=== PATIENT | male | born 1950 | race Caucasian/White ===

== ENCOUNTER 2021-07-12 15:42 | Emergency (ER) | payer MEDICARE ==
[~2021-07-12] VITALS: Ht 175 cm; Wt 70.0 kg
[2021-07-12] MEDS ORDERED: ATOR80TA76 (15:59)
--- NOTE | 2021-07-12 16:24 | ED Cardiac General ---
History of Present Illness General Chief Complaint: Cardiac/General Problems Stated Complaint: SOB, DIZZINESS, HEADACHE Nursing Triage Note: ARRIVED VIA AMB TO ROOM 05. STATES WHILE HE WAS RUNNING TODAY AT 1345 HE BECAME DIZZY, SOA, AND RACING HEART WHICH IS ABNORMAL FOR HIM. STATES HE FEELS FINE NOW. Source: patient Exam Limitations: no limitations (NIEVES MEI APRN) History of Present Illness Date Seen by Provider: Jul 12, 2021 Time Seen by Provider: 15:55 Initial Comments To ER by private vehicle accompanied by his with reports of palpitations shortness of breath dizziness. This began earlier this afternoon. He has a lot of caffeine this morning and was feeling some fluttering in his chest so he went to the [employer] to go for a jog and noticed that he felt increasing palpitations and fast heart rate so decided to come to the emergency room. He has had a couple of episodes in the past of lightheadedness but has never felt quite like this before. He has a history of hyperlipidemia and follows with Dr. PATEL. His only medication is atorvastatin. Timing/Duration: 4-6 hours, changing over time Severity: moderate Activities at Onset: none NTG SL CONTROL PANEL ASSEMBLER: No ASA po CONTROL PANEL ASSEMBLER: Yes Associated Systoms: No Chest Pain; Shortness of Air (NIEVES MEI APRN) Allergies and Home Medications Allergies Coded Allergies: No Known Drug Allergies (Unverified , 09/30/12) Patient Home Medication List Home Medication List Reviewed: Yes (NIEVES MEI APRN) Atorvastatin Calcium (Atorvastatin Calcium) 80 Mg Tablet, (Reported) Entered as Reported by: RUTH SALTER on 07/12/21 9929 Last Action: New Order Diltiazem HCl (Diltiazem 24Hr Cd) 120 Mg Cap.er.24h, 120 MG PO DAILY Prescribed by: NIEVES MEI on 07/12/21 7041 Review of Systems Review of Systems Constitutional: see HPI EENTM: No Symptoms Reported Respiratory: See HPI, Shortness of Air, SOA With Exertion Cardiovascular: See HPI, Irregular Heart Rate, Lightheadedness, Palpitations Gastrointestinal: No Symptoms Reported Genitourinary: No Symptoms Reported Musculoskeletal: no symptoms reported Skin: no symptoms reported Psychiatric/Neurological: No Symptoms Reported Endocrine: No Symptoms Reported Hematologic/Lymphatic: No Symptoms Reported (NIEVES MEI APRN) Physical Exam Vital Signs Vital Signs - First Documented 07/12/21 15:45 Temp 36.3 Pulse 106 Resp 16 B/P (MAP) 148/65 (92) Pulse Ox 98 O2 Delivery Room Air (RADHA CELESTE DO) Vital Signs Capillary Refill : Less Than 3 Seconds (NIEVES MEI APRN) Height, Weight, BMI Height: '" Weight: lbs. oz. kg; 22.00 BMI Method: General Appearance: No Apparent Distress, WD/WN, Thin, Other (Alert and oriented very pleasant is at the bedside. He is noted to be atrial fibrillation with rapid ventricular response and a rate of 126 07/31/1966. Blood pressure is 104/54. Respiratory rate is 16.) HEENT: PERRL/EOMI, TMs Normal Neck: Full Range of Motion, Normal Inspection Respiratory: No Accessory Muscle Use, No Respiratory Distress Cardiovascular: Irregularly Irregular, Tachycardia Gastrointestinal: Normal Bowel Sounds, Non Tender, Soft Extremity: Normal Capillary Refill, Normal Inspection Neurologic/Psychiatric: Alert, Oriented x3 Skin: Normal Color, Warm/Dry (NIEVES MEI APRN) Progress/Results/Core Measures Results/Orders Lab Results Laboratory Tests Test 07/12/21 16:05 07/12/21 18:00 Range/Units White Blood Count 5.2 4.3-11.0 10^3/uL Red Blood Count 4.05 L 4.30-5.52 10^6/uL Hemoglobin 12.5 L 13.3-17.7 g/dL Hematocrit 37 L 40-54 % Mean Corpuscular Volume 92 80-99 fL Mean Corpuscular Hemoglobin 31 25-34 pg Mean Corpuscular Hemoglobin Concent 34 32-36 g/dL Red Cell Distribution Width 13.3 10.0-14.5 % Platelet Count 190 130-400 10^3/uL Mean Platelet Volume 10.4 9.0-12.2 fL Immature Granulocyte % (Auto) 0 % Neutrophils (%) (Auto) 65 42-75 % Lymphocytes (%) (Auto) 27 12-44 % Monocytes (%) (Auto) 6 0-12 % Eosinophils (%) (Auto) 1 0-10 % Basophils (%) (Auto) 1 0-10 % Neutrophils # (Auto) 3.4 1.8-7.8 10^3/uL Lymphocytes # (Auto) 1.4 1.0-4.0 10^3/uL Monocytes # (Auto) 0.3 0.0-1.0 10^3/uL Eosinophils # (Auto) 0.1 0.0-0.3 10^3/uL Basophils # (Auto) 0.1 0.0-0.1 10^3/uL Immature Granulocyte # (Auto) 0.0 0.0-0.1 10^3/uL Prothrombin Time 15.0 H 12.2-14.7 SEC INR Comment 1.1 0.8-1.4 Activated Partial Thromboplast Time 36 H 24-35 SEC Sodium Level 141 135-145 MMOL/L Potassium Level 3.8 3.6-5.0 MMOL/L Chloride Level 106 98-107 MMOL/L Carbon Dioxide Level 22 21-32 MMOL/L Anion Gap 13 5-14 MMOL/L Blood Urea Nitrogen 23 H 7-18 MG/DL Creatinine 1.15 0.60-1.30 MG/DL Estimat Glomerular Filtration Rate 67 BUN/Creatinine Ratio 20 Glucose Level 141 H 70-105 MG/DL Calcium Level 9.1 8.5-10.1 MG/DL Corrected Calcium 9.1 8.5-10.1 MG/DL Magnesium Level 1.9 1.6-2.4 MG/DL Total Bilirubin 1.1 H 0.1-1.0 MG/DL Aspartate Amino Transf (AST/SGOT) 48 H 5-34 U/L Alanine Aminotransferase (ALT/SGPT) 46 0-55 U/L Alkaline Phosphatase 48 40-136 U/L Myoglobin 199.3 H 10.0-92.0 NG/ML Troponin I < 0.028 0.095 H <0.028 NG/ML B-Type Natriuretic Peptide 74.6 <100.0 PG/ML Total Protein 6.4 6.4-8.2 GM/DL Albumin 4.0 3.2-4.5 GM/DL Thyroid Stimulating Hormone (TSH) 2.89 0.35-4.94 UIU/ML Free Thyroxine 0.93 0.70-1.48 NG/DL (JEN CELESTEA K DO) Vital Signs/I&O 07/12/21 07/12/21 15:45 18:57 Temp 36.3 Pulse 106 60 Resp 16 16 B/P (MAP) 148/65 (92) 122/74 Pulse Ox 98 98 O2 Delivery Room Air Room Air (ROULA,RADHA K DO) Blood Pressure Mean: 92 Departure Communication (Admissions) His initial EKG showed atrial fibrillation with a rapid ventricular response. Rate of 132. His repeat EKG at this time shows sinus rhythm at 70 with no ectopy normal intervals. 1747-normal sinus rhythm at 57 without ectopy. Blood pressure is 135/85. I discussed with Dr. Miller, plan to go home after a repeat troponin as long as it is still negative. He denies chest pain now or at any time, only the palpitations and shortness of breath. He has a [id number] score of 1 because of his age but no other risk factors as he is really quite healthy. He was out digging a duck blind hand today according to the and drinks a lot of coffee. I discussed with him the risk of stroke based on the [id number] score and the recommendation to use either an antiplatelet or anticoagulant. Dr. Brito's preference is Eliquis. Patient states that he is not at all interested in using an anticoagulant but he would agree to restarting aspirin. He also agrees to starting Cardizem per Dr. Brito's recommendation. Since his heart rate is only 57 I will just do 120 mg. Also I will have him reduce his caffeine intake. He agrees to follow-up with cardiology next week, calling tomorrow to make an appointment. 184-repeat troponin is elevated at 0.095. I recommended admission, he refuses to stay and will sign out AGAINST MEDICAL ADVICE. (NIEVES MEI APRN) Impression Primary Impression: Paroxysmal atrial fibrillation with RVR Disposition: ADMITTED INPATIENT Condition: Stable Admissions Decision to Admit Reason: Admit from ER (General) Decision to Admit/Date: Jul 12, 2021 Time/Decision to Admit Time: 16:25 (NIEVES MEI APRN) Departure-Patient Inst. Decision time for Depature: 17:51 (NIEVES MEI APRN) Referrals: SEBASTIAN HAHN MD (PCP) Primary Care Physician ESTEFANIA BRITO MD FACP FAC CCDS MARQUES NULL MD, DAVID L JR, MD Patient Instructions: Atrial Fibrillation and Atrial Flutter ED Add. Discharge Instructions: 1. Restart your aspirin regimen, 2 baby aspirin a day would be fine. Take the medicine called diltiazem (Cardizem) 2 try to keep you out of this rhythm. Return to ER for any concerns. Call the new car make ready worker of your choosing tomorrow to make an appointment to be seen sometime next week. All discharge instructions reviewed with patient and/or family. Voiced understanding. Scripts Diltiazem HCl (Diltiazem 24Hr Cd) 120 Mg Cap.er.24h 120 MG PO DAILY, #30 CAP Prov: NIEVES MEI APRN 07/12/21 ATTENDING PHYSICIAN NOTE: I WAS PHYSICALLY PRESENT ER PHYSICIAN WHEN THIS PATIENT WAS IN ER, I WAS NOT INVOLVED IN ANY DECISION MAKING OR ANY CARE OF THIS PATIENT (RADHA CELESTE DO) Copy Copies To 1: ENA PATEL MD, PETER J APRN Jul 12, 2021 16:24 RADHA CELESTE DO Jul 14, 2021 02:36
[2021-07-12 16:27] LABS: BASOPHILS # (AUTO) 0.1 10^3/uL (0.0-0.1); BASOPHILS % (AUTO) 1 % (0-10); EOSINOPHILS # (AUTO) 0.1 10^3/uL (0.0-0.3); EOSINOPHILS % (AUTO) 1 % (0-10); HEMATOCRIT 37 % (40-54); HEMOGLOBIN 12.5 g/dL (13.3-17.7); LYMPHOCYTES # (AUTO) 1.4 10^3/uL (1.0-4.0); LYMPHOCYTES % (AUTO) 27 % (12-44); MEAN CORPUSCULAR HEMOGLOBIN 31 pg (25-34); MEAN CORPUSCULAR HGB CONC 34 g/dL (32-36); MEAN CORPUSCULAR VOLUME 92 fL (80-99); MEAN PLATELET VOLUME 10.4 fL (9.0-12.2); MONOCYTES # (AUTO) 0.3 10^3/uL (0.0-1.0); MONOCYTES % (AUTO) 6 % (0-12); NEUTROPHILS # (AUTO) 3.4 10^3/uL (1.8-7.8); NEUTROPHILS % (AUTO) 65 % (42-75); PLATELET COUNT 190 10^3/uL (130-400); WHITE BLOOD COUNT 5.2 10^3/uL (4.3-11.0)
[2021-07-12 16:30] LABS: POTASSIUM 3.8 MMOL/L (3.6-5.0)
[2021-07-12] MEDS ORDERED: NS IV 1000 ML 1,000 ML IV SCH (16:30)
[2021-07-12] MEDS ORDERED: LACTATED RINGERS 1,000 ML IV SCH (16:30)
[2021-07-12] MEDS ORDERED: dilTIAZem DRIP PRE-MIX 125 ML IV SCH (16:30)
[2021-07-12] MEDS ORDERED: ASPIRIN 81 MG CHEW (CHILDREN'S ASA) PO ONE (16:30)
[2021-07-12 16:32] LABS: CALCIUM 9.1 MG/DL (8.5-10.1)
[2021-07-12 16:33] LABS: TOTAL PROTEIN 6.4 GM/DL (6.4-8.2)
[2021-07-12 16:34] LABS: BILIRUBIN,TOTAL 1.1 MG/DL (0.1-1.0)
[2021-07-12 16:36] LABS: CREATININE SERUM 1.15 MG/DL (0.60-1.30)
[2021-07-12 16:40] LABS: MAGNESIUM 1.9 MG/DL (1.6-2.4)
[2021-07-12 16:44] LABS: INR 1.1 (0.8-1.4)
--- NOTE | 2021-07-12 16:49 | Diagnostic Imaging Report ---
INDICATION: Chest pain, shortness of breath. COMPARISONS: None. FINDINGS: Single view of the chest shows senescent changes with some chronic parenchymal changes. There are slight prominent central lung markings with some peribronchial cuffing suggesting element of mild bronchitis. No consolidations are seen. There is no effusion or pneumothorax. Soft tissues and bony thorax are unremarkable. IMPRESSION: Questionable mild bronchitis, otherwise no acute consolidations seen. Dictated by: Dictated on workstation # [id number]
[2021-07-12 17:03] LABS: FREE T4 (FREE THYROXINE) 0.93 NG/DL (0.70-1.48)
[2021-07-12] MEDS ORDERED: DILT120C88 PO (17:53)
[2021-07-12] MEDS ORDERED: ENOXAPARIN 80 MG/0.8 ML (LOVENOX) SYR SC ONE (18:45)
[2021-07-12 18:57] VITALS: BP 122/74
== END 2021-07-12 18:57 | disposition other institution (70) ==
LOC: EDUNIT# 15:42 → ER 15:45
DX: I48.20 Chronic atrial fibrillation, unspecified (principal); R00.0 Tachycardia, unspecified; E78.00 Pure hypercholesterolemia, unspecified; Z79.899 Other long term (current) drug therapy
CPT/HCPCS: 36415; 71045; 80053; 83735; 83874; 83880; 84439; 84443; 84484; 85025; 85610; 85730; 93005; 93041

== ENCOUNTER 2021-08-27 08:45 | Outpatient (CLI) | payer MEDICARE ==
[~2021-08-27 08:45] MED LIST: ATOR80TA76; DILT120C88 PO
== END 2021-08-27 09:00 ==
LOC: SLEEP 08:45
DX: G47.10 Hypersomnia, unspecified (principal); I48.0 Paroxysmal atrial fibrillation; I49.9 Cardiac arrhythmia, unspecified; I10 Essential (primary) hypertension
CPT/HCPCS: G0399

== ENCOUNTER → 2022-03-29 | Outpatient (CLI) | payer MEDICARE ==
[~2022-03-29] VITALS: Ht 177.8 cm; Wt 72.6 kg
[~2022-03-29] MED LIST changes: +APIX5TAB PO; +LISI20TA26 PO; +ROSU40TA23 PO
== END | disposition home or self-care (01) ==
LOC: PREOP 08:18
PROVIDERS: ATTEND Surgery
DX: Z01.818 Encounter for other preprocedural examination (principal)

== ENCOUNTER 2022-04-03 11:26 | Day surgery (SDC) | payer MEDICARE ==
[2022-04-03] VITALS (8 sets, daily range): BP systolic 81–134; BP diastolic 42–63
[~2022-04-03] VITALS: Ht 177 cm; Wt 72.6 kg
[~2022-04-03 11:26] MED LIST changes: +LACTATED RINGERS 1,000 ML IV STA
[2022-04-03] MEDS ORDERED: LIDOCAINE JELLY 2% 6 ML SYRINGE MM PRN (11:30)
[2022-04-03] MEDS ORDERED: LACTATED RINGERS 1,000 ML IV ONE (11:40)
--- NOTE | 2022-04-03 11:59 | Progress Note-Pre Operative ---
Pre-Operative Progress Note Date of Available H&P: Apr 03, 2022 Date H&P Reviewed: Apr 03, 2022 Time H&P Reviewed: 11:00 History & Physical: No changes noted Pre-Operative Diagnosis: screening o ALTHEA FRANKLIN MD Apr 03, 2022 11:59
[2022-04-03] MEDS ORDERED: ONDANSETRON 4 MG/2 ML (SDV) Z0FRAN IVP PRN (12:00)
[2022-04-03] MEDS ORDERED: ONDANSETRON 4 MG (ZOFRAN) ORAL DISSOLVE TAB PO PRN (12:00)
--- NOTE | 2022-04-03 12:00 | Discharge Inst-Surgical ---
D/C Lap Instructions-NOEMI Follow Up Activity as tolerated High Fiber Diet 25g or more per day Avoid Alcohol, Caffeine, Spicy [place] and Acid foods. Drink 64 fluid oz or more of fluids per day. Symptoms to Report: Fever over 101 degree F, Nausea/Vomiting If any problems/questions: Contact your physician or go to Emergency Room ALTHEA FRANKLIN MD Apr 03, 2022 12:00
[2022-04-03] MEDS ORDERED: PROPOFOL INJECTION 50 ML IV ONE (12:04)
[2022-04-03] MEDS ORDERED: MIDAZOLAM 2 MG/2 ML (VERSED) VIAL ONE (12:04)
--- NOTE | 2022-04-03 12:46 | Anesthesia-General Post-Op ---
MAC Patient Condition Mental Status/LOC: Same as Preop Cardiovascular: Satisfactory Nausea/Vomiting: Absent Respiratory: Satisfactory Pain: Controlled Complications: Absent Post Op Complications Complications None Follow Up Care/Instructions Patient Instructions None needed. Anesthesiology Discharge Order Discharge Order Patient is doing well, no complaints, stable vital signs, no apparent adverse anesthesia problems. No complications reported per nursing. ELIZABETH BORREGO CRNA Apr 03, 2022 12:46
--- NOTE | 2022-04-03 12:48 | Progress Note-Post Operative ---
Post-Operative Progess Note Surgeon (s)/Retail Analytics Manager (s) Surgeon ALTHEA FRANKLIN MD Retail Analytics Manager: none Pre-Operative Diagnosis screening colo Post-Operative Diagnosis chronic stage 2 ext and int hemorrhoids. Procedure & Operative Findings Date of Procedure 04/03/22 Procedure Performed/Findings EGD with bx. Anesthesia Type mac Estimated Blood Loss Estimated blood loss (mL): minimal Specimens/Packing Specimens Removed none ALTHEA FRANKLIN MD Apr 03, 2022 12:48
--- NOTE | 2022-04-03 23:53 | OPERATIVE REPORT ---
DATE OF SERVICE: 04/03/2022 ATTENDING PRIMARY CARE PHYSICIAN: Laurie Graff MD PREOPERATIVE DIAGNOSIS: Screening colonoscopy. POSTOPERATIVE DIAGNOSES: Mild chronic stage II external and internal hemorrhoids, mild sigmoid diverticulosis. PROCEDURE: Colonoscopy. SURGEON: Althea Franklin MD. ANESTHESIA: Monitored anesthesia care. ESTIMATED BLOOD LOSS: Minimal. FINDINGS: Mild chronic stage II external and internal hemorrhoids, mild sigmoid diverticulosis. DISPOSITION: The patient tolerated the procedure well. INDICATIONS: The patient is a 71-year-old male referred over to us for screening colonoscopy. His last one was in 2012 and a hyperplastic polyp was identified and removed. He states that he is otherwise doing well, does not report any major issues with diarrhea nor constipation as well as no red blood per rectum nor any dark tarry stools. He also does not report any family history of colon cancer. DESCRIPTION OF PROCEDURE: The patient was brought to the endoscopy suite, laid in the left lateral decubitus position. After adequate IV pain and sedative medications and monitored anesthesia care, a digital rectal examination was performed. Chronic stage II external and internal hemorrhoids identified, not actively edematous nor inflamed and no bleeding. Normal sphincter tone was felt and there were no palpable masses. Prostate gland was palpable and appeared normal. The endoscope was then intubated to the anus and rectum gently insufflated. The endoscope was then advanced through the valves of [place] of the rectum with no polyps or any neoplasms identified. Through the sigmoid colon, a mild sigmoid diverticulosis was identified. We then proceeded through the remainder of the descending, transverse and ascending colon to the cecum, which were normal. There were no polyps or any neoplasms identified throughout the colon or rectum. The endoscope was then slowly withdrawn while taking a second look and suctioning of residual air with no additional findings. The patient tolerated the procedure well. We will recommend continued medical management with a high-fiber diet with a fiber supplementation, which should equal or exceed 30 grams daily as well as significant amounts of water to promote soft consistency stools on a daily basis. If he is asymptomatic, he does not need another colonoscopy for another 10 years. Job ID: [id number] DocumentID: [id number] Dictated Date: 04/03/2022 12:45:19 Food Bagging Machine Operator Date: 04/03/2022 23:53:06 Dictated By: ALTHEA FRANKLIN MD [facility]
== END 2022-04-03 13:45 | disposition home or self-care (01) ==
LOC: ENDO 11:26
PROVIDERS: ATTEND Surgery
DX: Z12.11 Encounter for screening for malignant neoplasm of colon (principal); K57.30 Diverticulosis of large intestine without perforation or abscess without bleeding; K64.1 Second degree hemorrhoids; K64.8 Other hemorrhoids; Z87.891 Personal history of nicotine dependence; Z86.010 Personal history of colon polyps